=== PATIENT | male | born 2000 | race Caucasian/White ===

== ENCOUNTER 2022-11-27 18:32 | Emergency (ER) | payer MEDICAID ==
[~2022-11-27] VITALS: Ht 193 cm; Wt 59.1 kg
[2022-11-27 18:38] VITALS: BP 125/85
[2022-11-27] MEDS ORDERED: amoxicillin 250mg capsule PO ONE (20:45)
[2022-11-27] MEDS ORDERED: HYDROcodone/acetaminophen 10/325mg tab PO ONE (20:45)
--- NOTE | 2022-11-27 20:58 | NUR ---
PT STATES THAT HE IS PRESCRIBED AMOXICILLIN BY HIS DENTIST ALL THE TIME AND TAKES IT W/O COMPLICATIONS OR ASE. AND CONTINUOUS MINER AT BEDSIDE TO VERIFY.
[2022-11-27] MEDS ORDERED: AMOX500C2 PO (21:07)
[2022-11-27] MEDS ORDERED: HYDR-3972 PO (21:07)
== END 2022-11-27 21:33 | disposition home or self-care (01) ==
LOC: ER 18:33
DX: K02.9 Dental caries, unspecified (principal); Z79.899 Other long term (current) drug therapy; J45.909 Unspecified asthma, uncomplicated; F17.200 Nicotine dependence, unspecified, uncomplicated; Z88.8 Allergy status to other drugs, medicaments and biological substances
CPT/HCPCS: 99283